=== PATIENT | female | born 1950 | race Caucasian/White ===

== ENCOUNTER 2022-10-08 21:52 | Emergency (ER) | payer OTHER ==
[~2022-10-08] VITALS: Ht 157.4 cm; Wt 86.2 kg
[2022-10-08] MEDS ORDERED: LEVOTHYROXINE50 MCG PO (22:13)
[2022-10-08] MEDS ORDERED: TRESIBA FL100 UNIT/1 SQ (22:13)
[2022-10-08] MEDS ORDERED: LISINOPRIL10 M1 PO (22:13)
[2022-10-08] MEDS ORDERED: ROSUVASTATIN CA20 MG PO (22:14)
[2022-10-08] MEDS ORDERED: DULOXETINE HCL60 MG PO (22:14)
[2022-10-08] MEDS ORDERED: HUMALOG100 UNIT/1 SC (22:14)
[2022-10-08] MEDS ORDERED: AMLODIPINE BESYL5 MG PO (22:14)
[2022-10-08] MEDS ORDERED: PANTOPRAZOLE SO40 MG PO (22:14)
[2022-10-08] MEDS ORDERED: BISOPROLOL FUMAR5 MG PO (22:15)
[2022-10-08 22:52] LABS: HEMATOCRIT 42.4 % (37.0-47.0); MEAN CELL VOLUME 99.1 fl (81.0-99.0); MEAN CORPUSCULAR HGB 33.2 pg (27.0-31.0); MEAN CORPUSCULAR HGB CONC 33.5 g/dl (33.0-37.0); MEAN PLATELET VOLUME 10.3 fl (9.6-12.3); PLATELET COUNT AUTOMATED 317 10*3/uL (130-400); RED BLOOD COUNT 4.28 10*6/uL (4.10-5.10); RED CELL DISTRI WIDTH 12.9 % (0-14.5); WHITE BLOOD COUNT 9.9 10*3/uL (4.8-10.8)
[2022-10-08 22:54] LABS: MANUAL DIFF REFLEX YES
[2022-10-08 23:04] LABS: ACT PARTIAL THROMBO TIME 28.1 SECONDS (20.0-32.1)
[2022-10-08 23:20] LABS: ATYPICAL LYMPHS 2 % (0-0); BASOPHILS 1 % (0-1); PLATELET SUFFICIENCY NORMAL (NORMAL); TOTAL CELLS COUNTED 100 #CELLS
[2022-10-08 23:26] LABS: ALKALINE PHOSPHATASE 75 U/L (46-116); BUN 18 mg/dl (9-23); CHLORIDE 108 mmol/L (98-107); LIPASE 34 U/L (12-53); SGPT/ALT 16 U/L (10-49)
== END 2022-10-09 00:51 | disposition home or self-care (01) ==
LOC: ED 21:52
PROVIDERS: Internal Medicine
DX: T38.3X1A Poisoning by insulin and oral hypoglycemic [antidiabetic] drugs, accidental (unintentional), initial encounter (principal); E11.9 Type 2 diabetes mellitus without complications; Z79.4 Long term (current) use of insulin; Z79.899 Other long term (current) drug therapy; Y92.89 Other specified places as the place of occurrence of the external cause

== ENCOUNTER 2023-04-09 18:29 | Emergency (ER) | payer OTHER ==
[~2023-04-09] VITALS: Ht 157.4 cm; Wt 86.2 kg
[~2023-04-09 18:29] MED LIST: AMLODIPINE BESYL5 MG PO; BISOPROLOL FUMAR5 MG PO; DULOXETINE HCL60 MG PO; HUMALOG100 UNIT/1 SC; LEVOTHYROXINE50 MCG PO; LISINOPRIL10 M1 PO; PANTOPRAZOLE SO40 MG PO; ROSUVASTATIN CA20 MG PO; TRESIBA FL100 UNIT/1 SQ
== END 2023-04-09 18:54 | disposition left against medical advice (07) ==
LOC: ED 18:29
DX: R03.0 Elevated blood-pressure reading, without diagnosis of hypertension (principal); Z88.8 Allergy status to other drugs, medicaments and biological substances; Z53.21 Procedure and treatment not carried out due to patient leaving prior to being seen by health care provider

== ENCOUNTER 2023-07-02 16:59 | Emergency (ER) | payer OTHER ==
[~2023-07-02] VITALS: Wt 86.2 kg
[2023-07-02 17:44] LABS: BASO # 0.1 10*3/uL (0.0-0.1); BASO % 0.6 % (0.0-1.0); HEMATOCRIT 42.6 % (37.0-47.0); LYMPH # 1.2 10*3/uL (1.3-4.4); LYMPH % 12.9 % (27.0-41.0); MEAN CELL VOLUME 95.9 fl (81.0-99.0); MEAN CORPUSCULAR HGB 32.9 pg (27.0-31.0); MEAN CORPUSCULAR HGB CONC 34.3 g/dl (33.0-37.0); MEAN PLATELET VOLUME 10.1 fl (9.6-12.3); MONO # 0.6 10*3/uL (0.1-1.0); MONO % 6.8 % (3.0-9.0); NEUT # 7.4 10*3/uL (2.3-7.9); NEUT % 79.5 % (47.0-73.0); PLATELET COUNT AUTOMATED 218 10*3/uL (130-400); RED BLOOD COUNT 4.44 10*6/uL (4.10-5.10); RED CELL DISTRI WIDTH 12.7 % (0-14.5); WHITE BLOOD COUNT 9.4 10*3/uL (4.8-10.8)
[2023-07-02 18:02] LABS: ALKALINE PHOSPHATASE 72 U/L (46-116); BUN 10 mg/dl (9-23); CHLORIDE 101 mmol/L (98-107); POTASSIUM 4.1 mmol/L (3.4-5.1); SGPT/ALT 22 U/L (5-49)
[2023-07-02] MEDS ORDERED: SODIUM CHLORIDE 0.9% 1,000 ML IV ONE (19:00)
== END 2023-07-02 20:37 | disposition home or self-care (01) ==
LOC: ED 16:59
PROVIDERS: Physician Assistant Medical
DX: R53.1 Weakness (principal); R51.9 Headache, unspecified; T46.5X5A Adverse effect of other antihypertensive drugs, initial encounter; I10 Essential (primary) hypertension; F32.A Depression, unspecified; K21.9 Gastro-esophageal reflux disease without esophagitis; E11.9 Type 2 diabetes mellitus without complications; Z88.8 Allergy status to other drugs, medicaments and biological substances; F17.200 Nicotine dependence, unspecified, uncomplicated; Y92.009 Unspecified place in unspecified non-institutional (private) residence as the place of occurrence of the external cause